=== PATIENT | female | born 1985 | race African-American/Black ===

== ENCOUNTER 2021-01-15 20:34 | Emergency (ER) | payer OTHER ==
[~2021-01-15] VITALS: Ht 154.9 cm; Wt 86.4 kg
[2021-01-15 20:43] VITALS: Ht 154.9 cm; Wt 86.4 kg
[2021-01-15] MEDS ORDERED: NAPROSYN500 MG PO (21:42)
[2021-01-15] MEDS ORDERED: BENZACLIN GEL 335 GM TP (21:42)
[2021-01-15 21:51] VITALS: BP 161/91
== END 2021-01-15 21:51 | disposition home or self-care (01) ==
LOC: D.ER 20:34
DX: S00.531A Contusion of lip, initial encounter (principal); L70.8 Other acne